=== PATIENT | female | born 1970 | race African-American/Black ===

== ENCOUNTER → 2017-05-06 | Outpatient (CLI) | payer OTHER ==
[~2017-05-06] MED LIST: FE T325T PO; FLUT50SP EACH NARE; LEVO.125 PO; PERI8.6T PO; [UNRECOGNIZED DRUG - CODE] PO
[2017-05-06 11:42] LABS: BASOPHIL % 0.7 % (0.0-2.0); EOSINOPHIL # 0.2 TH/MM3 (0-0.4); EOSINOPHIL % 3.1 % (0.0-4.0); HEMATOCRIT 32.8 % (35.0-46.0); HEMO FLAGS DIFF FINAL; LYMPH % 24.4 % (9.0-44.0); LYMPHOCYTE # 1.5 TH/MM3 (1.0-4.8); MEAN CELL VOLUME 75.2 FL (80.0-100.0); MEAN CORPUSCULAR HEMOGLOBIN 24.9 PG (27.0-34.0); MEAN CORPUSCULAR HGB CONC 33.2 % (32.0-36.0); MONO % 7.2 % (0.0-8.0); NEUT % 64.6 % (16.0-70.0); PLATELET COUNT 279 TH/MM3 (150-450); RED BLOOD COUNT 4.37 MIL/MM3 (4.00-5.30); RED CELL DISTRIBUTION WIDTH 14.7 % (11.6-17.2); WHITE BLOOD COUNT 6.2 TH/MM3 (4.0-11.0)
[2017-05-06 12:05] LABS: WESTERGREN SEDIMENTATION RATE 46 mm/hr (0-20)
[2017-05-06 12:13] LABS: ALT (GPT) 21 U/L (10-53); ANION GAP 4 MEQ/L (5-15); AST (GOT) 19 U/L (15-37); BICARBONATE 29.7 MEQ/L (21.0-32.0); BLOOD UREA NITROGEN 8 MG/DL (7-18); CHLORIDE 106 MEQ/L (98-107); GLOMERULAR FILTRATION RATE 109 ML/MIN (>89); GLUCOSE,FASTING 81 MG/DL (74-99); POTASSIUM 4.1 MEQ/L (3.5-5.1); SODIUM (NA) 140 MEQ/L (136-145)
[2017-05-06 12:38] LABS: ALKALINE PHOSPHATASE 57 U/L (45-117); TOTAL BILIRUBIN ADULT 0.3 MG/DL (0.2-1.0)
[2017-05-06 15:38] LABS: HEMOGLOBIN A1a 0.9 %; HEMOGLOBIN A1b 1.4 %; HEMOGLOBIN Ao 57.6 %; HEMOGLOBIN LA1C 1.2 %; HEMOGLOBIN P3 2.3 %
== END ==
LOC: CLAB 11:14
PROVIDERS: ATTEND Family Medicine
DX: E03.9 Hypothyroidism, unspecified (principal); D50.9 Iron deficiency anemia, unspecified; D57.3 Sickle-cell trait; R20.2 Paresthesia of skin
CPT/HCPCS: 36415; 80053; 82607; 82746; 83020; 83036; 84443; 85025; 85652; 86225

== ENCOUNTER → 2018-01-02 | Outpatient (CLI) | payer OTHER ==
[~2018-01-02] MED LIST changes: +LEVO.1 PO; -LEVO.125 PO; +SPRI28TA PO; -[UNRECOGNIZED DRUG - CODE] PO
[2018-01-02 15:49] LABS: HEMATOCRIT 30.5 % (35.0-46.0); MEAN CELL VOLUME 70.5 FL (80.0-100.0); MEAN CORPUSCULAR HEMOGLOBIN 23.2 PG (27.0-34.0); MEAN PLATELET VOLUME 7.7 FL (7.0-11.0); PLATELET COUNT 283 TH/MM3 (150-450); RED BLOOD COUNT 4.32 MIL/MM3 (4.00-5.30); RED CELL DISTRIBUTION WIDTH 17.3 % (11.6-17.2); WHITE BLOOD COUNT 7.4 TH/MM3 (4.0-11.0)
[2018-01-02 16:17] LABS: CHOLESTEROL 153 MG/DL (120-200); TRIGLYCERIDES 176 MG/DL (42-150)
[2018-01-02 16:25] LABS: CHOLESTEROL/ HDL RATIO 2.61 RATIO; HDL CHOLESTEROL 58.6 MG/DL (40.0-60.0); LDL CHOLESTEROL 59 MG/DL (0-99)
[2018-01-02 17:08] LABS: WESTERGREN SEDIMENTATION RATE 59 mm/hr (0-20)
== END ==
LOC: CLAB 15:32
PROVIDERS: ATTEND Family Medicine
DX: E03.9 Hypothyroidism, unspecified (principal); R73.09 Other abnormal glucose; M25.519 Pain in unspecified shoulder
CPT/HCPCS: 36415; 80061; 83036; 84443; 85027; 85652